=== PATIENT | male | born 1990 | race Caucasian/White ===

== ENCOUNTER 2017-10-27 03:11 | Emergency (ER) | payer OTHER ==
[2017-10-27] MEDS ORDERED: NS 1,000 ML IV ONE ×2 (03:18)
--- NOTE | 2017-10-27 03:21 | EDPHY ---
H & P HPI/ROS: HPI CHIEF COMPLAINT: Restlessness, agitation, alcohol intoxication, marijuana intoxication possible other substance HISTORY OF PRESENT ILLNESS: Patient very pleasant 27-year-old male who presents emergency room from his private residence after call 911 for restlessness and agitation. EMS arrived they found him agitated and restless with tachycardia 150s and dilated pupils. He received 10 mg IV Valium in route which is help. He arrives to the emergency room noted be tachycardic in the 130s. He states that he feels intoxicated. Admits to drinking 8 alcoholic beverages tonight. Additionally smoked marijuana. Possible other substance. He states he normally drinks alcohol and never really feels like this. He has not been sick recently. He has not had a fever he is not vomiting. He denies any reported trauma. Past Medical History: Denies medical history except for hypertension and depression Past Surgical History: No recent surgery Social History: Lives locally denies daily use of drugs alcohol tobacco. Family History: Noncontributory ROS REVIEW OF SYSTEMS: A comprehensive 10 point review of systems is otherwise negative aside from elements mentioned in the history of present illness. Exam Constitutional intoxicated, smells of alcohol triage nursing summary reviewed, vital signs reviewed, awake/alert. Noted be tachycardic upon arrival past Eyes pupils are equal and round react to light minimally, 6 mm dilated equal normal conjunctivae and sclera, EOMI HENT normal inspection, atraumatic, moist mucus membranes, no epistaxis, neck supple/ no meningismus, no raccoon eyes. Respiratory clear to auscultation bilaterally, normal breath sounds, no respiratory distress, no wheezing. Cardiovascular tachycardic, regular rhythm, no murmur, no edema, distal pulses normal. Gastrointestinal soft, non-tender, no rebound, no guarding, normal bowel sounds, no distension, no pulsatile mass. Genitourinary no CVA tenderness. Musculoskeletal no midline vertebral tenderness, full range of motion, no calf swelling, no tenderness of extremities, no meningismus, good pulses, neurovascularly intact. Skin pink, warm, & dry, no rash, skin atraumatic. Neurologic awake, alert and oriented x 3, AAOx3, moves all 4 extremities equally, motor intact, sensory intact, CN II-XII intact, normal cerebellar, normal vision, normal speech. Psychiatric normal mood/affect. Heme/Lymph/Immune no lymphadenopathy. Differential Diagnosis: Includes but is not limited to in a particular order acute dehydration, electrolyte disturbance, acute intoxication, alcohol intoxication, drug intoxication, sympathomimetic. Medical Decision Making: Plan for this patient IV establishment with IV fluid bolus 2 L normal saline, EKG for tachycardia, check basic blood work, alcohol level and drug screen and re-evaluate. Re-evaluation: EKG interpretation by me on record in [facility] system. Impression time of EKG 3:33 a.m., sinus tachycardia rate of 128. Otherwise unremarkable EKG. 0415: Serum alcohol 292. 0610: Re-evaluation patient is much more sober now. Ambulated well to the bathroom without difficulty. Clinically sober and would like to go home. Heart rate trended down from the 130s to 99 with IV fluids. Patient has no complaints. Denies feeling ill nauseous or chest pain or shortness of breath. He would like to be discharged. Return precautions discussed. Source: Patient, EMS - Medical/Surgical History Hx Asthma: No Hx Chronic Respiratory Disease: No Hx Diabetes: No Hx Cardiac Disease: No Hx Renal Disease: No Hx Cirrhosis: No Hx Alcoholism: No Hx HIV/AIDS: No Hx Splenectomy or Spleen Trauma: No Other PMH: medical- depression, otitis. surgery- pinkie finger - Social History Smoking Status: Never smoked Constitutional: Initial Vital Signs Temperature (C) 36.8 C 10/27/17 03:16 Heart Rate 135 H 10/27/17 03:16 Respiratory Rate 17 10/27/17 03:16 Blood Pressure 149/106 H 10/27/17 03:16 O2 Sat (%) 97 10/27/17 03:16 O2 Delivery Mode Room Air Allergies/Adverse Reactions: No Known Allergies Allergy (Unverified 11/21/13 14:50) Home Medications: Medication Instructions Recorded Fluoxetine 11/21/13 Metoprolol Tartrate [Lopressor 25 0 mg PO BID 12/01/14 mg (RX)] Mirtazapine 0 mg PO DAILY 12/01/14 Medical Decision Making - Data Points Laboratory Results: Laboratory Results 10/27/17 03:00 10/27/17 03:00 10/27/17 10/27/17 10/27/17 04:09 03:00 03:00 WBC 14.43 10^3/uL H 10^3/uL (3.80-9.50) RBC 5.10 10^6/uL 10^6/uL (4.40-6.38) Hgb 15.6 g/dL g/dL (13.7-17.5) Hct 44.4 % % (40.0-51.0) MCV 87.1 fL fL (81.5-99.8) MCH 30.6 pg pg (27.9-34.1) MCHC 35.1 g/dL g/dL (32.4-36.7) RDW 12.1 % % (11.5-15.2) Plt Count 344 10^3/uL 10^3/uL (150-400) MPV 9.6 fL fL (8.7-11.7) Neut % (Auto) 45.6 % % (39.3-74.2) Lymph % (Auto) 44.4 % % (15.0-45.0) [place]ock % (Auto) 6.3 % % (4.5-13.0) Eos % (Auto) 2.8 % % (0.6-7.6) Baso % (Auto) 0.5 % % (0.3-1.7) Nucleat RBC Rel Count 0.0 % % (0.0-0.2) Absolute Neuts (auto) 6.58 10^3/uL H 10^3/uL (1.70-6.50) Absolute Lymphs (auto) 6.41 10^3/uL H 10^3/uL (1.00-3.00) Absolute Monos (auto) 0.91 10^3/uL H 10^3/uL (0.30-0.80) Absolute Eos (auto) 0.40 10^3/uL 10^3/uL (0.03-0.40) Absolute Basos (auto) 0.07 10^3/uL 10^3/uL (0.02-0.10) Absolute Nucleated RBC 0.00 10^3/uL 10^3/uL (0-0.01) Immature Gran % 0.4 % % (0.0-1.1) Immature Gran # 0.06 10^3/uL 10^3/uL (0.00-0.10) Sodium 149 mEq/L H mEq/L (135-145) Potassium 3.9 mEq/L mEq/L (3.5-5.2) Chloride 101 mEq/L mEq/L (97-110) Carbon Dioxide 22 mEq/l mEq/l (22-31) Anion Gap 26 mEq/L H mEq/L (8-16) BUN 12 mg/dL mg/dL (7-23) Creatinine 1.1 mg/dL mg/dL (0.7-1.3) Estimated GFR > 60 Glucose 134 mg/dL H mg/dL (70-100) Calcium 9.8 mg/dL mg/dL (8.5-10.4) Urine Opiates Screen NEGATIVE (NEGATIVE) Urine Barbiturates NEGATIVE (NEGATIVE) Ur Phencyclidine Scrn NEGATIVE (NEGATIVE) Ur Amphetamine Screen NEGATIVE (NEGATIVE) U Benzodiazepines Scrn NEGATIVE (NEGATIVE) Urine Cocaine Screen NEGATIVE (NEGATIVE) U Marijuana (THC) Screen NON-NEGATIVE H (NEGATIVE) Ethyl Alcohol 292 mg/dL H mg/dL (0-10) Medications Given: Discontinued Medications Sodium Chloride (Ns) 1,000 mls @ 0 mls/hr IV EDNOW ONE; Wide Open PRN Reason: Protocol Stop: 10/27/17 03:19 Last Admin: 10/27/17 03:20 Dose: 1,000 mls Sodium Chloride (Ns) 1,000 mls @ 0 mls/hr IV EDNOW ONE; Wide Open PRN Reason: Protocol Stop: 10/27/17 03:19 Last Admin: 10/27/17 03:20 Dose: 1,000 mls Departure - Departure Disposition: Home, Routine, Self-Care Clinical Impression: Alcoholic intoxication Qualifiers: Complication of substance-induced condition: uncomplicated Qualified Code(s): F10.920 - Alcohol use, unspecified with intoxication, uncomplicated Condition: Good Instructions: Alcohol Intoxication (ED) Referrals: Patient,NotPresent [Unknown] - As per Instructions
[2017-10-27 03:24] LABS: PLATELET COUNT 344 10^3/uL (150-400)
--- NOTE | 2017-10-27 03:35 | CPEKG ---
Heart Rate: 128 RR Interval: 469 P-R Interval: 148 QRSD Interval: 106 QT Interval: 263 QTC Interval: 384 P [place]: 53 QRS [place]: 3 EKG Severity - ABNORMAL ECG - EKG Impression: SINUS TACHYCARDIA EKG Impression: NONSPECIFIC T ABNORMALITIES, LATERAL LEADS Electronically Signed By: Hiro Bhagat 27-Oct-2017 06:33:47
[2017-10-27 04:12] VITALS: RESP 15
[2017-10-27 06:06] VITALS: BP 133/87; PULSE 99
[2017-10-27 06:13] VITALS: TEMP 98.6; O2SAT 99
== END 2017-10-27 06:18 | disposition home or self-care (01) ==
LOC: EDUNIT#
DX: F10.920 Alcohol use, unspecified with intoxication, uncomplicated (principal); I10 Essential (primary) hypertension; E86.9 Volume depletion, unspecified
CPT/HCPCS: 80305; G0480